=== PATIENT | male | born 1935 | race Caucasian/White ===

== ENCOUNTER → 2017-09-15 | Outpatient (CLI) | payer MEDICARE, BC ==
--- NOTE | 2017-09-15 13:39 | KCIC ---
MRI Cervical Spine Without Contrast History: Chronic neck pain and weakness, worsening pain since this summer Technique: Multiplanar, multi sequential noncontrast MR imaging was performed of the cervical spine. Comparison: None Findings: Cervical vertebral body stature is overall adequate. There is very minimal grade 1 anterior spondylolisthesis C4-C5. Cervical cord caliber is within normal limits without significant or defined signal abnormality, some artifact of the cord. There is [id number] left cervical levoscoliosis. There is no significant abnormality of the cervical medullary junction. There is moderate to severe degenerative disc disease C4-5 to C6-7. There is no significant focal marrow edema. There is no significant abnormality of the cervical medullary junction. C2-C3: Spinal canal and neural foramina are adequate. C3-C4: There is right uncovertebral degenerative change. There is posterior extrusion extending slightly above and below the intervertebral disc space greatest centrally, estimated at approximately 0.3 cm AP by 0.8 cm CC by 0.4 cm transverse. There is indentation upon the ventral thecal sac greater centrally, central canal minimally narrowed to about 0.9 cm. Left neural foramen is adequate. There is moderate to severe narrowing of the right neural foramen. C4-C5: There is buckling of the ligamentum flavum. There is posterior mostly central protrusion and probable component of extrusion extending slightly above and below the intervertebral disc space up to 0.3 cm AP by 0.7 cm cc by approximately 0.3 cm transverse. Central canal is narrowed to 0.7-0.8 cm. There is uncovertebral degenerative change greater on the right. There is severe narrowing of the right neural foramen, at least moderate narrowing on the left. C5-C6: There is disc osteophyte complex and bulge/shallow protrusion more eccentric to the right lateral recess. Central canal is borderline 1 cm, mild right lateral recess stenosis. There is uncovertebral degenerative change greater on the right. There is facet degenerative change bilaterally greater on the right. There is fairly severe narrowing of the right neural foramen, left neural foramen adequate. C6-C7: There is minimal disc osteophyte complex. Central canal is adequate 1.1 cm. There is uncovertebral degenerative change on the left. There is bilateral facet degenerative change. Right neural foramen is adequate. There is fairly severe narrowing of the left neural foramen. C7-T1: There is shallow posterior mostly central protrusion. Central canal is adequate 1.2 cm. Neural foramina are overall adequate. Impression: 1. There is spinal stenosis to 0.7-0.8 cm at C4-5, to lesser degree at C3-4, and mild right lateral recess stenosis C5-6. 2. Multilevel facet and uncovertebral degenerative change contributes to neural foramina compromise including more significant narrowing on the right at C3-C4 and C5-C6, on the left at C6-7, and right greater than left at C4-5. 3. There is moderate to severe degenerative disc disease C4-5 to C6-7, spondylosis at the same levels. 4. There is mild to moderate cervical levoscoliosis. There is minimal grade 1 anterior spondylolisthesis at C4-5. Electronically signed by: John Sun MD (09/15/2017 1:36 PM) [id number]
== END | disposition home or self-care (01) ==
LOC: KCIC MRI 10:36
PROVIDERS: ATTEND Physical Medicine & Rehabilitation
DX: M48.02 Spinal stenosis, cervical region (principal); M43.12 Spondylolisthesis, cervical region; M50.321 Other cervical disc degeneration at C4-C5 level; M50.322 Other cervical disc degeneration at C5-C6 level; M50.323 Other cervical disc degeneration at C6-C7 level; R53.1 Weakness
CPT/HCPCS: 72141